=== PATIENT | male | born 1970 | race Two or more races ===

== ENCOUNTER 2019-01-30 08:20 | Emergency (ER) | payer SELFPAY ==
[~2019-01-30] VITALS: Ht 165.1 cm; Wt 68.0 kg
[2019-01-30 10:07] VITALS: BP 129/90
[2019-01-30] MEDS ORDERED: IBUPROFEN 800 MG TAB PO ONE (11:15)
[2019-01-30] MEDS ORDERED: diphenhdrAMINE HCL 25 MG CAP PO ONE (12:45)
[2019-01-30] MEDS ORDERED: methylPREDNISolone SOD SUCC 125 MG/2 ML VL IM ONE (12:45)
== END 2019-01-30 13:29 | disposition home or self-care (01) ==
LOC: ER 08:20
DX: S70.262A Insect bite (nonvenomous), left hip, initial encounter (principal); S60.861A Insect bite (nonvenomous) of right wrist, initial encounter; S10.96XA Insect bite of unspecified part of neck, initial encounter; S30.860A Insect bite (nonvenomous) of lower back and pelvis, initial encounter; E78.00 Pure hypercholesterolemia, unspecified; I10 Essential (primary) hypertension; F17.210 Nicotine dependence, cigarettes, uncomplicated; W57.XXXA Bitten or stung by nonvenomous insect and other nonvenomous arthropods, initial encounter; Y93.89 Activity, other specified; Y92.89 Other specified places as the place of occurrence of the external cause; Y99.8 Other external cause status
CPT/HCPCS: 93926; 96372; 99284; J2930